=== PATIENT | female | born 2000 | race African-American/Black ===

== ENCOUNTER 2020-02-24 10:46 | Emergency (ER) | payer MEDICAID ==
[~2020-02-24] VITALS: Ht 167.6 cm; Wt 50.0 kg
[2020-02-24] MEDS ORDERED: SODIUM CHLORIDE 0.9% 1,000 ML IV ONE (10:56)
[2020-02-24] MEDS ORDERED: ONDANSETRON HCL 4MG/2ML INJ IV ONE (11:00)
[2020-02-24 11:27] LABS: BASOPHILS % 0.4 % (0.0-2.0); EOSINOPHILS % 0.9 % (0.0-5.0); HEMATOCRIT. 36.9 % (36.0-48.0); HEMOGLOBIN. 12.4 g/dL (12.0-16.0); LYMPHOCYTES % 35.1 % (20.0-50.0); MEAN CORPUSCULAR HEMOGLOBIN 29.3 pg (28.0-32.0); MEAN CORPUSCULAR VOLUME 87.6 fL (81.0-99.0); MEAN PLATELET VOLUME 8.9 fl (7.4-10.4); MONOCYTES % 5.3 % (2.0-8.0); NEUTROPHILS % 58.3 % (40.0-76.0); PLATELET 214 x1000/uL (130-400); RED BLOOD CELL COUNT 4.22 mill/uL (4.2-5.4); RED CELL DISTRIBUTION WIDTH 13.4 % (11.6-14.6)
[2020-02-24 11:33] LABS: CLARITY URINE CLEAR (CLEAR); COLOR URINE YELLOW (YELLOW); KETONES URINE NEGATIVE (NEGATIVE); LEUKOCYTE ESTERASE URINE NEGATIVE (NEGATIVE); NITRITE URINE NEGATIVE (NEGATIVE); OCCULT BLOOD URINE NEGATIVE (NEGATIVE); PH URINE 5.5 (4.5-8.0); PROTEIN URINE NEGATIVE (NEGATIVE); SPECIFIC GRAVITY URINE 1.016 (1.005-1.030); UROBILINOGEN URINE 0.2 E.U./dL (0.2-1.0)
[2020-02-24 11:39] LABS: CHLORIDE 111 mEq/L (98-107)
[2020-02-24 11:43] LABS: ETHANOL BLOOD 25 mg/dL
[2020-02-24 11:46] LABS: HCG SCREEN NEGATIVE
[2020-02-24 11:49] LABS: TOTAL IRON BINDING CAPACITY 379 ug/dL (250-450)
[2020-02-24 12:02] LABS: *AMPHETAMINES SCREEN URINE NEGATIVE (NEGATIVE); *BARBITURATES SCREEN URINE NEGATIVE (NEGATIVE); *BENZODIAZEPINES SCREEN URINE NEGATIVE (NEGATIVE); *COCAINE SCREEN URINE NEGATIVE (NEGATIVE); METHADONE URINE SCREEN NEGATIVE (NEGATIVE); OPIATES URINE SCREEN NEGATIVE (NEGATIVE)
[2020-02-24 12:03] LABS: CANNABINOID URINE SCREEN NEGATIVE (NEGATIVE); PHENCYCLIDINE URINE SCREEN NEGATIVE (NEGATIVE)
[2020-02-24] MEDS ORDERED: IBUPROFEN 400MG TABLET PO ONE (12:45)
[2020-02-24 21:30] VITALS: BP 102/62
== END 2020-02-24 22:00 | disposition home or self-care (01) ==
LOC: ER 10:46
DX: F10.129 Alcohol abuse with intoxication, unspecified (principal); R00.0 Tachycardia, unspecified; Y90.1 Blood alcohol level of 20-39 mg/100 ml
CPT/HCPCS: 36415; 80053; 80305; 80307; 80320; 80329; 81003; 81025; 83540; 83550; 84703; 85025; 93005; 96374; 99285; J2405; J7030; G0480